=== PATIENT | male | born 1980 | race Two or more races ===

== ENCOUNTER 2023-10-30 10:17 | Emergency (ER) | payer OTHER ==
[~2023-10-30] VITALS: Ht 165.1 cm; Wt 88.8 kg
[2023-10-30 11:07] VITALS: BP 168/99; PULSE 103; RESP 16; TEMP 98.5; O2SAT 94
[2023-10-30] MEDS ORDERED: IBUP1TAB5 PO (11:51)
== END 2023-10-30 12:02 | disposition home or self-care (01) ==
LOC: ER 10:17
DX: S46.102A Unspecified injury of muscle, fascia and tendon of long head of biceps, left arm, initial encounter (principal); X50.0XXA Overexertion from strenuous movement or load, initial encounter; Y93.89 Activity, other specified; Y92.69 Other specified industrial and construction area as the place of occurrence of the external cause; Y99.8 Other external cause status